=== PATIENT | male | born 1990 | race Caucasian/White ===

== ENCOUNTER 2016-09-27 07:26 | Emergency (ER) | payer BC ==
[2016-09-27 07:35] VITALS: BP 118/72
--- NOTE | 2016-09-27 07:44 | UC ---
Skin Complaint HPI - HPI Summary HPI Summary: rash all over x 4 days exposed to poison kelley 4 days ago , now having rash all over, + burning , itchy , no discharge, no fever, no chills, no wheezing or sob has been using steroid cream with no improvement - History of Current Complaint Chief Complaint: UCSkin Time Seen by Provider: 09/27/16 07:32 Stated Complaint: SKIN COMPLAINT Hx Obtained From: Patient Onset/Duration: Gradual Onset, Lasting Days - 4, Still Present Timing: Constant Onset Severity: Moderate Current Severity: Moderate Location: Diffuse Character: Pruritus, Pain, Redness, Painful Aggravating: Touch Alleviating: Nothing Associated Signs & Symptoms: Positive: Rash, Tenderness. Negative: Nausea, Vomiting, Weakness, Fever, Chills, Cough, Wheezing Related History: Other: - exposed to poison kelley - Allergy/Home Medications Allergies/Adverse Reactions: Allergies Allergy/AdvReac Type Severity Reaction Status Date / Time No Known Allergies Allergy Verified 09/27/16 07:35 Review of Systems Constitutional: Negative Skin: Rash Eyes: Negative ENT: Negative Respiratory: Negative Cardiovascular: Negative Gastrointestinal: Negative Genitourinary: Negative Motor: Negative Neurovascular: Negative Musculoskeletal: Negative Neurological: Negative Psychological: Negative All Other Systems Reviewed And Are Negative: Yes PMH/Surg Hx/FS Hx/Imm Hx Previously Healthy: Yes - Surgical History Surgical History: None - Family History Known Family History: Positive: None Negative: Diabetes - Social History Alcohol Use: Rare Substance Use Type: None Smoking Status (MU): Never Smoked Tobacco Physical Exam Triage Information Reviewed: Yes Appearance: Well-Appearing, No Pain Distress, Well-Nourished Vital Signs: Initial Vital Signs Temp 98.1 F 09/27/16 07:28 Pulse 62 09/27/16 07:28 Resp 18 09/27/16 07:28 BP 118/72 09/27/16 07:28 Pulse Ox 100 09/27/16 07:28 Vital Signs Reviewed: Yes Eyes: Positive: Conjunctiva Clear ENT: Positive: Normal ENT inspection, Hearing grossly normal, Pharynx normal Neck: Positive: Supple, Nontender, No Lymphadenopathy Respiratory: Positive: Chest non-tender, Lungs clear, Normal breath sounds Cardiovascular: Positive: RRR, No Murmur, Pulses Normal Abdominal Exam: Normal Skin: Positive: rashes - macular rash, linear on both upper arms, legs, chest and back Course/Dx - Diagnoses Provider Diagnoses: poison kelley Discharge - Discharge Plan Condition: Stable Disposition: HOME Prescriptions: predniSONE TAB* [Deltasone TAB*] 40 mg PO DAILY #10 tab Patient Education Materials: Poison [place] (ED) Referrals: No Primary Care Phys,NOPCP [Primary Care Provider] - If Needed
== END 2016-09-27 07:47 | disposition home or self-care (01) ==
LOC: UCCORT 07:26
DX: L23.7 Allergic contact dermatitis due to plants, except food (principal)
CPT/HCPCS: 99212; G0463

== ENCOUNTER 2019-03-11 12:41 | Emergency (ER) | payer BC ==
[2019-03-11 15:23] VITALS: BP 121/70
--- NOTE | 2019-03-11 15:30 | UC ---
Truncal Trauma HPI - HPI Summary HPI Summary: 28-year-old male presents with complaints of left chest wall pain. States 3 days ago he slipped on the ice, fell to the ground, and struck his left lateral chest on some frozen ground. Complains of sharp left sided chest wall pain that only occurs with deep breath, sneezing, or pressure. Has taken ibuprofen with some relief in symptoms. Denies fever, chills, cough, or shortness of breath. - History Of Current Complaint Chief Complaint: UCChestPain Stated Complaint: LEFT RIB INJURY Time Seen by Provider: 03/11/19 15:21 Hx Obtained From: Patient Pain Intensity: 2 - Allergies/Home Medications Allergies/Adverse Reactions: Allergies Allergy/AdvReac Type Severity Reaction Status Date / Time No Known Allergies Allergy Verified 03/11/19 15:19 Home Medications: Home Medications Ibuprofen TAB* [Advil TAB*] 1,000 mg PO Q6H PRN 03/11/19 [History Confirmed 04/25] PMH/Surg Hx/FS Hx/Imm Hx Previously Healthy: Yes - Denies significant PMH - Surgical History Surgical History: None - Family History Known Family History: Positive: Non-Contributory - Social History Occupation: Employed Full-time Lives: With Family Alcohol Use: Occasionally Substance Use Type: None Smoking Status (MU): Never Smoked Tobacco Review of Systems All Other Systems Reviewed And Are Negative: Yes Constitutional: Negative: Fever, Chills Skin: Negative: Bruising Eyes: Positive: Negative ENT: Positive: Negative Respiratory: Negative: Shortness Of Breath, Cough Cardiovascular: Negative: Palpitations Gastrointestinal: Negative: Abdominal Pain, Vomiting, Diarrhea, Nausea Genitourinary: Positive: Negative Musculoskeletal: Positive: Other: - See HPI Neurological: Positive: Negative Is Patient Immunocompromised?: No Physical Exam - Summary Physical Exam Summary: GENERAL APPEARANCE: Well developed, well nourished, alert and cooperative, and appears to be in no acute distress. EYES: Conjunctiva clear. No drainage. EARS: External auditory canals and tympanic membranes clear, hearing grossly intact. NOSE: No nasal discharge. THROAT: Pharynx normal. No tonsilar inflammation, swelling, exudate, or lesions. Uvula midline. NECK: Neck supple, non-tender without lymphadenopathy. CARDIAC: Normal S1 and S2. No S3, S4 or murmurs. Rhythm is regular. There is no peripheral edema, cyanosis or pallor. Extremities are warm and well perfused. Capillary refill is less than 2 seconds. Peripheral pulses intact. LUNGS: No chest wall tenderness, crepitus, or ecchymnosis noted. Clear to auscultation without rales, rhonchi, wheezing or diminished breath sounds. ABDOMEN: Positive bowel sounds. Soft, nondistended, nontender. No guarding or rebound. No masses or hepatosplenomegally. MUSKULOSKELETAL: ROM intact to all extremities. No joint erythema or tenderness. Normal muscular development. Normal gait. SKIN: Skin normal color, texture and turgor with no lesions or eruptions. Triage Information Reviewed: Yes Vital Signs: Initial Vital Signs Temp 98.7 F 03/11/19 15:20 Pulse 68 03/11/19 15:20 Resp 18 03/11/19 15:20 BP 121/70 03/11/19 15:20 Pulse Ox 99 03/11/19 15:20 Vital Signs Reviewed: Yes Truncal Trauma Course/Dx - Course Course Of Treatment: 28-year-old male presents with complaints of left chest wall pain. States 3 days ago he slipped on the ice, fell to the ground, and struck his left lateral chest on some frozen ground. Complains of sharp left sided chest wall pain that only occurs with deep breath, sneezing, or pressure. Has taken ibuprofen with some relief in symptoms. Denies fever, chills, cough, or shortness of breath. Afebrile. Vital signs stable. On exam patient had no chest wall tenderness, crepitus, or ecchymnosis noted. Lung sounds were clear to auscultation without rales, rhonchi, wheezing or diminished breath sounds. Remainder of exam was unremarkable. Discussed with the patient that I suspect his symptoms are a left chest wall contusion however I cannot rule out the possibility of a rib fracture at this time. We further discussed that the treatment plan would be unchanged regardless of whether this was a contusion or fracture therefore patient has chosen to defer any imaging at this time. Recommending conservative treatment including [id number] analgesics and cold therapy. I discussed with the patient the importance of performing deep breathing exercises which were demonstrated at this time to help prevent complications of pneumonia. He is to return here or follow up with primary care in 7 days if symptoms are not improving. Anticipatory guidance and warning symptoms were reviewed with the patient. Verbalizes understanding and agrees with plan of care. - Differential Dx/Diagnosis Differential Diagnosis/HQI/PQRI: Chest Wall Contusion, Pneumothorax, Rib Fracture Provider Diagnosis: Left-sided chest wall pain Discharge ED - Sign-Out/Discharge Documenting (check all that apply): Patient Departure All imaging exams completed and their final reports reviewed: No Studies - Discharge Plan Condition: Stable Disposition: HOME Patient Education Materials: Chest Wall Pain (ED) Referrals: No Primary Care Phys,NOPCP [Primary Care Provider] - [facility] [place] [facility] [Outside] Additional Instructions: I suspect that you a chest wall contusion (bruise) although I cannot fully rule out the possibility of a rib fracture at this time. Continue to take ibuprofen 600 mg every 8 hours as needed for pain. Apply some ice to the affected area for 15-20 minutes at least 4 times a day to help with the pain. It is important that you are performing deep breathing exercises as we discussed every 2 hours while awake to help prevent pneumonia. Return here or follow up with primary care in in 7 days if no improvement. Seek immediate medical attention if you develop a fever greater than 100.5 F, have worsening chest pain, difficulty breathing, or any worsening of symptoms. - Billing Disposition and Condition Condition: STABLE Disposition: Home
== END 2019-03-11 15:53 | disposition home or self-care (01) ==
LOC: UCCORT 12:41
DX: R07.89 Other chest pain (principal); W00.0XXA Fall on same level due to ice and snow, initial encounter; Y92.9 Unspecified place or not applicable
CPT/HCPCS: 99211; G0463

== ENCOUNTER 2019-04-28 12:16 | Emergency (ER) | payer BC ==
[2019-04-28 13:25] LABS: Influenza B Molecular POSITIVE (Negative)
--- NOTE | 2019-04-28 13:37 | UC ---
FLU HPI - HPI Summary HPI Summary: Pt presents with c/o sudden onset of chills, body aches, myalgia and cough X 1 day. - History of Current Complaint Chief Complaint: UCRespiratory Stated Complaint: COUGH, FEVER, BODY ACHES Time Seen by Provider: 04/28/19 12:56 Hx Obtained From: Patient Onset/Duration: Sudden Onset, Lasting Days, Still Present Severity Currently: Moderate Severity Initially: Moderate Associated Signs & Symptoms: Positive: Fever, Myalgia, Cough, Nasal Congestion Related Hx: Possible Flu/Infectious Exposure - Risk Factors Influenza Risk Factors: Negative - Allergy/Home Medications Allergies/Adverse Reactions: Allergies Allergy/AdvReac Type Severity Reaction Status Date / Time No Known Allergies Allergy Verified 04/28/19 12:51 Home Medications: Home Medications Ibuprofen TAB* [Advil TAB*] 1,000 mg PO Q6H PRN 03/11/19 [History Confirmed ] Dm/P-Ephed/Acetaminoph/Doxylam [[place] Plus Cold+Flu Pkt] 1 each PO [History] Oseltamivir CAP* [Tamiflu CAP*] 75 mg PO Q12H #10 cap 04/28/19 [Rx] PMH/Surg Hx/FS Hx/Imm Hx Previously Healthy: Yes - Surgical History Surgical History: None - Family History Known Family History: Positive: Cardiac Disease, Non-Contributory - Social History Occupation: Employed Full-time Lives: With Family Alcohol Use: Occasionally Substance Use Type: None Smoking Status (MU): Never Smoked Tobacco Have You Smoked in the Last Year: No Review of Systems All Other Systems Reviewed And Are Negative: Yes Constitutional: Positive: Fever, Chills, Fatigue Skin: Positive: Negative Eyes: Positive: Negative Respiratory: Positive: Cough Cardiovascular: Positive: Negative Gastrointestinal: Positive: Negative Genitourinary: Positive: Negative Motor: Positive: Negative Neurovascular: Positive: Negative Musculoskeletal: Positive: Myalgia Neurological/Mental Status: Positive: Negative Psychological: Positive: Negative Is Patient Immunocompromised?: No Physical Exam Triage Information Reviewed: Yes Appearance: Ill-Appearing Vital Signs: I personally took the pt's vital signs. PPE worn and COVID precautions taken Vital Signs Reviewed: Yes Eye Exam: Normal ENT: Positive: Nasal congestion Neck exam: Normal Respiratory Exam: Normal Cardiovascular: Positive: Tachycardia Musculoskeletal Exam: Normal Neurological Exam: Normal Psychological Exam: Normal Skin Exam: Normal, Other - warm to touch Flu Course/Dx - Differential Dx/Diagnosis Differential Diagnosis/HQI/PQRI: Influenza, Upper Respiratory Infection Provider Diagnosis: Influenza B Discharge ED - Sign-Out/Discharge Documenting (check all that apply): Patient Departure All imaging exams completed and their final reports reviewed: No Studies - Discharge Plan Condition: Stable Disposition: HOME Prescriptions: Oseltamivir CAP* [Tamiflu CAP*] 75 mg PO Q12H #10 cap Patient Education Materials: Influenza (ED) Forms: COVID-19 Tested & Isolation Referrals: [facility] [place] [facility] [Outside] - If Needed No Primary Care Phys,NOPCP [Primary Care Provider] - - Billing Disposition and Condition Condition: STABLE Disposition: Home
[2019-04-28 13:51] VITALS: BP 141/68
== END 2019-04-28 13:39 | disposition home or self-care (01) ==
LOC: UCCORT 12:16
DX: J10.1 Influenza due to other identified influenza virus with other respiratory manifestations (principal)
CPT/HCPCS: 99212; G0463